=== PATIENT | male | born 1950 | race Caucasian/White ===

== ENCOUNTER 2016-12-06 09:46 | Day surgery (SDC) | payer MEDICARE, BC ==
[~2016-12-06 09:46] MED LIST: Midazolam 1 MG/ML 2 ML SDV ONE; Propofol 200 MG/20 ML SDV ONE; fentaNYL 100 MCG/2 ML SDV ONE
[2016-12-06] MEDS ORDERED: Sodium Chloride 0.9% 1,000 ML IV SCH (10:15)
--- NOTE | 2016-12-06 12:08 | OR ---
DATE OF PROCEDURE: 12/06/2016 PROCEDURE: Colonoscopy. FINDINGS: 1. Poor colon prep. 2. No other gross abnormalities. COMPLICATIONS: None. MODEL [employer]KER PLASTIC: None. ANESTHETIC: MAC. PREOPERATIVE DIAGNOSIS: History of colon polyps. POSTOPERATIVE DIAGNOSIS: History of colon polyps. RISKS: Risks, benefits, alternatives, limitations including, but not limited to infection, bleeding, and perforation were explained to the patient and he wished to proceed. PROCEDURE IN DETAIL: The patient was placed in the left lateral decubitus position. Digital rectal exam was performed without abnormality. The scope was introduced and advanced atraumatically to the ileocecal valve. The scope was brought back to the ascending, transverse, descending colon, and retroflexed. The prep would be described as poor with solid and liquid stool remaining. Approximately 85% to 90% of luminal surface could be seen with these techniques. From what could be seen no masses, no polyps, no blood, no diverticulosis. No abnormalities when retroflexed. The patient tolerated the procedure well. Darrick Pham MD /[id number]
== END 2016-12-06 12:35 | disposition home or self-care (01) ==
LOC: JP.SDS 09:46
PROVIDERS: ATTEND Surgery
DX: Z12.11 Encounter for screening for malignant neoplasm of colon (principal); Z86.010 Personal history of colon polyps; E03.9 Hypothyroidism, unspecified
CPT/HCPCS: G0105; J2250; J2704; J3010

== ENCOUNTER 2021-08-19 17:07 | Emergency (ER) | payer MEDICARE ==
[2021-08-19] MEDS ORDERED: HYDROmorphone 0.5 MG/0.5 ML Syringe IVPUSH ONE (19:04)
[2021-08-19] MEDS ORDERED: Labetalol 20 MG/4 ML Syringe IVPUSH ONE (19:05)
[2021-08-19] MEDS ORDERED: Sodium Chloride 0.9% 1,000 ML IV SCH (19:45)
[2021-08-19 20:01] LABS: ESTIMATED GFR 59 mL/min (>60)
== END 2021-08-19 20:55 ==
LOC: JP.ED 17:07
DX: S72.001A Fracture of unspecified part of neck of right femur, initial encounter for closed fracture (principal); I10 Essential (primary) hypertension; E03.9 Hypothyroidism, unspecified; Z20.822 Contact with and (suspected) exposure to COVID-19; Z79.899 Other long term (current) drug therapy; Z79.82 Long term (current) use of aspirin; Z79.84 Long term (current) use of oral hypoglycemic drugs; W18.30XA Fall on same level, unspecified, initial encounter
CPT/HCPCS: 36415; 73502; 73552; 80053; 85025; 93005; 93010; 96361; 96374; 96375; 99284; 99285; J1170; J3490; J7030; U0002

== ENCOUNTER 2022-11-13 12:21 | Emergency (ER) | payer MEDICARE ==
[2022-11-13] MEDS ORDERED: Acetaminophen 325 MG Tab PO ONE (13:12)
== END 2022-11-13 14:52 | disposition home or self-care (01) ==
LOC: JP.ED 12:21
DX: S22.41XA Multiple fractures of ribs, right side, initial encounter for closed fracture (principal); S40.811A Abrasion of right upper arm, initial encounter; E78.00 Pure hypercholesterolemia, unspecified; M79.671 Pain in right foot; M19.90 Unspecified osteoarthritis, unspecified site; E03.9 Hypothyroidism, unspecified; Z79.899 Other long term (current) drug therapy; Z79.82 Long term (current) use of aspirin; W01.0XXA Fall on same level from slipping, tripping and stumbling without subsequent striking against object, initial encounter; Y92.240 Courthouse as the place of occurrence of the external cause
CPT/HCPCS: 71046; 71100; 99284; A9270

== ENCOUNTER 2022-11-17 15:52 | Emergency (ER) | payer MEDICARE ==
[2022-11-17] MEDS ORDERED: Magnesium Citrate Solution 296 ML Bottle PO ONE (16:10)
[2022-11-17 16:28] LABS: BASOPHILS ABSOLUTE AUTO 0.01 K/uL (0.00-0.10); BASOPHILS PERCENT AUTO 0.1 % (0.1-1.3); EOSINOPHILS ABSOLUTE AUTO 0.01 K/uL (0.00-0.40); EOSINOPHILS PERCENT AUTO 0.1 % (0.0-5.4); HEMATOCRIT 37.4 % (38.4-49.7); HEMOGLOBIN 13.2 g/dL (12.9-16.9); IMMATURE GRAN ABSOLUTE AUTO 0.05 K/uL (0.00-0.23); IMMATURE GRAN PERCENT AUTO 0.6 % (0.0-0.7); LYMPHOCYTES ABSOLUTE AUTO 0.68 K/uL (0.8-3.3); LYMPHOCYTES PERCENT AUTO 7.5 % (11.4-47.7); MEAN CORPUSCULAR HEMOGLOBIN 34.1 pg (31.6-35.5); MEAN CORPUSCULAR HGB CONC 35.3 g/dL (31.6-35.5); MEAN CORPUSCULAR VOLUME 96.6 fL (81.4-99.0); MONOCYTES PERCENT AUTO 5.5 % (3.3-12.6); NEUTROPHILS ABSOLUTE AUTO 7.84 K/uL (1.0-7.6); NEUTROPHILS PERCENT AUTO 86.2 % (40.0-78.1); PLATELET COUNT,PLT 159 K/uL (130-375); RED BLOOD CELL COUNT 3.87 M/uL (4.14-5.76); WHITE BLOOD CELL COUNT,WBC 9.1 K/uL (3.2-11.0)
[2022-11-17 16:43] LABS: ANION GAP 14.3 mmol/L (5.0-14.0); CALCIUM 8.6 mg/dL (8.5-10.1); CREATININE 0.8 mg/dL (0.8-1.3); EST CRCL DRUG DOSING (CG) 84.69 mL/min; POTASSIUM,K 4.3 mmol/L (3.6-5.2)
[2022-11-17] MEDS ORDERED: Sodium Chloride 0.9% 1,000 ML IV ONE (16:56)
== END 2022-11-17 21:14 | disposition home or self-care (01) ==
LOC: JP.ED 15:52
DX: S22.41XA Multiple fractures of ribs, right side, initial encounter for closed fracture (principal); Z79.82 Long term (current) use of aspirin; W19.XXXA Unspecified fall, initial encounter
CPT/HCPCS: 36415; 70450; 80048; 85025; 96360; 99284; A9270; J7030

== ENCOUNTER 2023-10-08 13:24 | Emergency (ER) | payer MEDICARE ==
[2023-10-08 14:17] LABS: BASOPHILS ABSOLUTE AUTO 0.03 K/uL (0.00-0.10); BASOPHILS PERCENT AUTO 0.3 % (0.1-1.3); EOSINOPHILS ABSOLUTE AUTO 0.06 K/uL (0.00-0.40); EOSINOPHILS PERCENT AUTO 0.5 % (0.0-5.4); HEMATOCRIT 38.2 % (38.4-49.7); HEMOGLOBIN 13.5 g/dL (12.9-16.9); IMMATURE GRAN PERCENT AUTO 0.2 % (0.0-0.7); LYMPHOCYTES ABSOLUTE AUTO 1.99 K/uL (0.8-3.3); LYMPHOCYTES PERCENT AUTO 18.2 % (11.4-47.7); MEAN CORPUSCULAR HEMOGLOBIN 34.8 pg (31.6-35.5); MEAN CORPUSCULAR HGB CONC 35.3 g/dL (31.6-35.5); MEAN CORPUSCULAR VOLUME 98.5 fL (81.4-99.0); MONOCYTES ABSOLUTE AUTO 0.93 K/uL (0.20-0.90); MONOCYTES PERCENT AUTO 8.5 % (3.3-12.6); NEUTROPHILS ABSOLUTE AUTO 7.92 K/uL (1.0-7.6); NEUTROPHILS PERCENT AUTO 72.3 % (40.0-78.1); PLATELET COUNT,PLT 123 K/uL (130-375); RED BLOOD CELL COUNT 3.88 M/uL (4.14-5.76)
[2023-10-08 14:24] LABS: IMMATURE GRAN ABSOLUTE AUTO 0.02 K/uL (0.00-0.23)
[2023-10-08] MEDS: Iopamidol 755 Mg/ML 100 ML Bottle IV SCH (14:27)
[2023-10-08] MEDS: Sodium Chloride 0.9% 100 ML IV SCH (14:28)
[2023-10-08 14:37] LABS: INR 1.1; PROTHROMBIN TIME 10.8 sec (9.2-10.6); PTT,PARTIAL THROMBOPLSTIN TIME 27.4 sec (21.8-27.3)
[2023-10-08 14:46] LABS: BLOOD UREA NITROGEN,BUN 22 mg/dL (7-18); CALCIUM 8.4 mg/dL (8.5-10.1); CARBON DIOXIDE,CO2 29 mmol/L (21-32); CHLORIDE,CL 98 mmol/L (100-108); CREATININE 1.2 mg/dL (0.8-1.3); EST CRCL DRUG DOSING (CG) 54.63 mL/min; ESTIMATED GFR 65 mL/min (>60); GLUCOSE RANDOM 152 mg/dL (74-106); POTASSIUM,K 4.3 mmol/L (3.6-5.2); SODIUM,NA 134 mmol/L (140-148)
[2023-10-08 14:47] LABS: ANION GAP 11.3 mmol/L (5.0-14.0); TROPONIN I HIGH SENSITIVITY < 4.0 pg/mL (<=60.3)
[2023-10-08] MEDS: Sodium Chloride 0.9% 1,000 ML IV ONE (15:12)
== END 2023-10-08 17:49 | disposition home or self-care (01) ==
LOC: JP.ED 13:24
DX: E86.0 Dehydration (principal); E78.00 Pure hypercholesterolemia, unspecified; E03.9 Hypothyroidism, unspecified; Z79.899 Other long term (current) drug therapy; Z79.82 Long term (current) use of aspirin; Z79.890 Hormone replacement therapy; Z88.6 Allergy status to analgesic agent; Z88.8 Allergy status to other drugs, medicaments and biological substances
CPT/HCPCS: 36415; 70450; 70496; 70498; 80048; 82947; 84443; 84484; 85025; 85610; 85730; 93005; 96360; 99285; J3490; J7030; Q9967; U0002